=== PATIENT | male | born 1935 | race Hispanic/Latino ===

== ENCOUNTER 2018-11-29 10:30 | Outpatient (CLI) | payer MEDICARE, BC | END 2018-11-29 10:31 | disposition home or self-care (01) | LOC: PAT 10:30 | DX: F60.5 Obsessive-compulsive personality disorder (principal); Z01.810 Encounter for preprocedural cardiovascular examination; Z01.811 Encounter for preprocedural respiratory examination; Z01.812 Encounter for preprocedural laboratory examination; I49.1 Atrial premature depolarization; I49.3 Ventricular premature depolarization ==

== ENCOUNTER 2018-11-30 10:24 | Day surgery (SDC) | payer MEDICARE, BC ==
[2018-11-29 12:41] VITALS: BMI 22.4
[2018-11-30 11:18] VITALS: RESP 20
[2018-11-30] MEDS ORDERED: Succinylcholine 200 mg/10 ml Inj IV ONE (11:31)
[2018-11-30] MEDS ORDERED: Propofol 10 mg/ml Inj (20 ML) ONE (11:32)
[2018-11-30] MEDS ORDERED: Sodium Chloride 0.9% 1,000 ML IV SCH (12:00)
[2018-11-30 13:02] VITALS: BP 159/62; PULSE 52; TEMP 97.9; O2SAT 100
== END 2018-11-30 14:45 | disposition home or self-care (01) ==
LOC: SDS 10:24
PROVIDERS: ATTEND Psychiatry & Neurology Addiction Medicine
DX: F60.5 Obsessive-compulsive personality disorder (principal)
CPT/HCPCS: 90870; J0330; J2704; J7030

== ENCOUNTER 2018-12-04 10:51 | Day surgery (SDC) | payer MEDICARE, BC ==
[2018-11-29 12:41] VITALS: BMI 22.4
[2018-12-04] MEDS ORDERED: Lactated Ringer's 1,000 ML IV SCH (13:00)
[2018-12-04] MEDS ORDERED: Propofol 10 mg/ml Inj (20 ML) ONE (13:01)
[2018-12-04 13:40] VITALS: TEMP 97.9
[2018-12-04 14:19] VITALS: RESP 18; O2SAT 100
[2018-12-04 14:58] VITALS: BP 170/76; PULSE 74
== END 2018-12-04 15:35 | disposition home or self-care (01) ==
LOC: SDS 10:51
PROVIDERS: ATTEND Psychiatry & Neurology Addiction Medicine
DX: F32.9 Major depressive disorder, single episode, unspecified (principal); I10 Essential (primary) hypertension
CPT/HCPCS: 90870; J2704; J3010; J7120

== ENCOUNTER 2018-12-07 10:24 | Day surgery (SDC) | payer MEDICARE, BC ==
[2018-11-29 12:41] VITALS: BMI 22.4
[2018-12-07] MEDS ORDERED: Lactated Ringer's 1,000 ML IV SCH (12:45)
[2018-12-07] MEDS ORDERED: Propofol 10 mg/ml Inj (20 ML) ONE (12:50)
[2018-12-07 15:53] VITALS: PULSE 91; RESP 18; TEMP 97.8; O2SAT 99
[2018-12-07 15:55] VITALS: BP 138/65
== END 2018-12-07 15:30 | disposition home or self-care (01) ==
LOC: SDS 10:24
PROVIDERS: ATTEND Psychiatry & Neurology Addiction Medicine
DX: F32.9 Major depressive disorder, single episode, unspecified (principal); F60.5 Obsessive-compulsive personality disorder
CPT/HCPCS: 90870; J2704; J3010; J7120

== ENCOUNTER 2018-12-11 10:54 | Day surgery (SDC) | payer MEDICARE, BC ==
[2018-11-29 12:41] VITALS: BMI 22.4
[2018-12-11] MEDS ORDERED: Etomidate 20 mg/10ml Inj IV ONE (12:33)
[2018-12-11] MEDS ORDERED: Lactated Ringer's 1,000 ML IV SCH (13:15)
[2018-12-11 13:50] VITALS: O2SAT 99
[2018-12-11 14:01] VITALS: BP 159/61; PULSE 59; RESP 20; TEMP 97.6
== END 2018-12-11 15:30 | disposition home or self-care (01) ==
LOC: SDS 10:54
PROVIDERS: ATTEND Psychiatry & Neurology Addiction Medicine
DX: F32.9 Major depressive disorder, single episode, unspecified (principal); F60.5 Obsessive-compulsive personality disorder
CPT/HCPCS: 90870; J7120

== ENCOUNTER 2018-12-14 11:10 | Day surgery (SDC) | payer MEDICARE, BC ==
[2018-11-29 12:41] VITALS: BMI 22.4
[2018-12-14] MEDS ORDERED: Etomidate 20 mg/10ml Inj IV ONE (13:07)
[2018-12-14] MEDS ORDERED: Succinylcholine 200 mg/10 ml Inj IV ONE (13:18)
[2018-12-14] MEDS ORDERED: Lactated Ringer's 1,000 ML IV SCH (13:30)
[2018-12-14 14:36] VITALS: RESP 18; TEMP 98
[2018-12-14 16:22] VITALS: BP 130/65; PULSE 67; O2SAT 96
== END 2018-12-14 16:00 | disposition home or self-care (01) ==
LOC: SDS 11:10
PROVIDERS: ATTEND Psychiatry & Neurology Addiction Medicine
DX: F32.89 Other specified depressive episodes (principal)
CPT/HCPCS: 90870; J0330; J7120

== ENCOUNTER 2018-12-18 10:24 | Day surgery (SDC) | payer MEDICARE, BC ==
[2018-12-18 11:43] VITALS: RESP 18
[2018-12-18 11:54] VITALS: BMI 22.4
[2018-12-18] MEDS ORDERED: Propofol 10 mg/ml Inj (20 ML) ONE (16:12)
[2018-12-18] MEDS ORDERED: Succinylcholine 200 mg/10 ml Inj IV ONE (16:22)
[2018-12-18] MEDS ORDERED: Lactated Ringer's 1,000 ML IV SCH (16:45)
[2018-12-18 17:09] VITALS: O2SAT 99
[2018-12-18 17:28] VITALS: TEMP 97.4
[2018-12-18 18:26] VITALS: BP 141/75; PULSE 64
== END 2018-12-18 18:24 | disposition home or self-care (01) ==
LOC: SDS 10:24
PROVIDERS: ATTEND Psychiatry & Neurology Addiction Medicine
DX: F32.9 Major depressive disorder, single episode, unspecified (principal)
CPT/HCPCS: 90870; J0330; J2405; J2704; J7120 ×2

== ENCOUNTER 2018-12-21 11:04 | Day surgery (SDC) | payer MEDICARE, BC ==
[2018-11-29 12:41] VITALS: BMI 22.4
[2018-12-21] MEDS ORDERED: Propofol 10 mg/ml Inj (20 ML) ONE (12:57)
[2018-12-21] MEDS ORDERED: Succinylcholine 200 mg/10 ml Inj IV ONE (12:57)
[2018-12-21] MEDS ORDERED: Sodium Chloride 0.9% 1,000 ML IV SCH (13:30)
[2018-12-21 14:46] VITALS: PULSE 51; RESP 18; TEMP 98.1; O2SAT 100
[2018-12-21 14:48] VITALS: BP 174/65
== END 2018-12-21 15:55 | disposition home or self-care (01) ==
LOC: SDS 11:04
PROVIDERS: ATTEND Psychiatry & Neurology Addiction Medicine
DX: F32.9 Major depressive disorder, single episode, unspecified (principal)
CPT/HCPCS: 90870; J0330; J2704; J7030

== ENCOUNTER 2018-12-25 11:08 | Day surgery (SDC) | payer MEDICARE, BC ==
[2018-12-22 07:56] VITALS: BMI 22.1
[2018-12-25] MEDS ORDERED: Lactated Ringer's 1,000 ML IV SCH (12:00)
[2018-12-25] MEDS ORDERED: Etomidate 20 mg/10ml Inj IV ONE (12:10)
[2018-12-25] MEDS ORDERED: Propofol 10 mg/ml Inj (20 ML) ONE (12:10)
[2018-12-25] MEDS ORDERED: Succinylcholine 200 mg/10 ml Inj IV ONE (12:15)
[2018-12-25 12:31] VITALS: O2SAT 100
[2018-12-25 13:15] VITALS: BP 169/55; PULSE 46; RESP 20; TEMP 97.2
== END 2018-12-25 14:50 | disposition home or self-care (01) ==
LOC: SDS 11:08
PROVIDERS: ATTEND Psychiatry & Neurology Addiction Medicine
DX: F32.9 Major depressive disorder, single episode, unspecified (principal); F60.5 Obsessive-compulsive personality disorder
CPT/HCPCS: 90870; J0330; J2704; J7120 ×2

== ENCOUNTER 2018-12-28 10:45 | Day surgery (SDC) | payer MEDICARE, BC ==
[2018-12-22 11:53] VITALS: BMI 22.1
[2018-12-28] MEDS ORDERED: Propofol 10 mg/ml Inj (20 ML) ONE (13:00)
[2018-12-28] MEDS ORDERED: Sodium Chloride 0.9% 1,000 ML IV SCH (13:30)
[2018-12-28 13:58] VITALS: O2SAT 100
[2018-12-28 16:10] VITALS: RESP 18; TEMP 98
[2018-12-28 16:12] VITALS: BP 156/80; PULSE 65
== END 2018-12-28 16:00 | disposition home or self-care (01) ==
LOC: SDS 10:45
PROVIDERS: ATTEND Psychiatry & Neurology Addiction Medicine
DX: F32.9 Major depressive disorder, single episode, unspecified (principal)
CPT/HCPCS: 90870; J2001; J2704; J7030

== ENCOUNTER 2019-01-01 10:22 | Day surgery (SDC) | payer MEDICARE, BC ==
[2018-12-22 11:53] VITALS: BMI 22.1
[2019-01-01 11:19] VITALS: TEMP 98; O2SAT 100
[2019-01-01] MEDS ORDERED: Propofol 10 mg/ml Inj (20 ML) ONE (12:42)
[2019-01-01] MEDS ORDERED: Succinylcholine 200 mg/10 ml Inj IV ONE (12:43)
[2019-01-01] MEDS ORDERED: Sodium Chloride 0.9% 1,000 ML IV SCH (13:15)
[2019-01-01 14:29] VITALS: BP 174/73; PULSE 64; RESP 18
== END 2019-01-01 15:40 | disposition home or self-care (01) ==
LOC: SDS 10:22
PROVIDERS: ATTEND Psychiatry & Neurology Addiction Medicine
DX: F60.5 Obsessive-compulsive personality disorder (principal); F32.9 Major depressive disorder, single episode, unspecified
CPT/HCPCS: 90870; J0330; J2704; J7030; J7120

== ENCOUNTER 2019-01-04 10:18 | Day surgery (SDC) | payer MEDICARE, BC ==
[2018-12-22 11:53] VITALS: BMI 22.1
[2019-01-04] MEDS ORDERED: Etomidate 20 mg/10ml Inj IV ONE (12:25)
[2019-01-04] MEDS ORDERED: Succinylcholine 200 mg/10 ml Inj IV ONE (12:25)
[2019-01-04 12:55] VITALS: RESP 18
[2019-01-04 13:46] VITALS: TEMP 98.3; O2SAT 99
[2019-01-04 14:43] VITALS: BP 158/61; PULSE 68
== END 2019-01-04 15:15 | disposition home or self-care (01) ==
LOC: SDS 10:18
PROVIDERS: ATTEND Psychiatry & Neurology Addiction Medicine
DX: F32.9 Major depressive disorder, single episode, unspecified (principal)
CPT/HCPCS: 90870; J0330